=== PATIENT | male | born 1945 | race Two or more races ===

== ENCOUNTER 2017-08-01 10:14 | Inpatient (IN) | payer OTHER ==
[~2017-08-01] VITALS: Ht 165.1 cm; Wt 88.5 kg
[2017-08-01] MEDS ORDERED: LOSARTAN-HCTZ1 EAC1 PO (10:37)
[2017-08-01] MEDS ORDERED: CARVEDILOL6.25 MG PO (10:38)
[2017-08-01] MEDS ORDERED: CRESTOR10 MG PO (10:38)
[2017-08-01] MEDS ORDERED: XANAX1 MG PO (10:38)
[2017-08-01] MEDS ORDERED: FENOFIBRATE43 MG PO (10:38)
[2017-08-01] MEDS ORDERED: JANUMET XR 50-1 EAC1 PO (10:39)
[2017-08-01] MEDS ORDERED: FOLIC ACID1 MG PO (10:39)
[2017-08-01] MEDS ORDERED: HUMULIN 70100 UNIT/2 SUBCUTANEO (10:39)
[2017-08-01] MEDS ORDERED: SYNTHROID75 MCG PO (10:40)
[2017-08-01] MEDS ORDERED: ASA81 MG PO (10:40)
[2017-08-01] MEDS ORDERED: GABAPENTIN600 MG PO (10:40)
[2017-08-01] MEDS ORDERED: ALPRAZOLAM2 MG PO (10:41)
[2017-08-01] MEDS ORDERED: OMEPRAZOLE20 M1 PO (10:41)
[2017-08-11] MEDS ORDERED: AMOXICILLIN875 MG PO (17:09)
[2017-08-11] MEDS ORDERED: PERCOCET 5-3251 EACH PO (17:09)
[2017-08-11] MEDS ORDERED: XANAX1 MG PO (17:09)
[2017-08-11] MEDS ORDERED: COLACE100 MG PO (17:09)
[2017-08-11] MEDS ORDERED: NEURONTIN800 MG PO (17:09)
== END 2017-08-12 16:49 | disposition home or self-care (01) | DRG 460 ==
LOC: O/R 08-11 05:15 → SURG 08-11 10:13
PROVIDERS: Orthopaedic Surgery Orthopaedic Surgery of the Spine
PROC: 0SG00AJ Fusion of Lumbar Vertebral Joint with Interbody Fusion Device, Posterior Approach, Anterior Column, Open Approach (ICD-10-PCS; 2017-08-11)
PROC: 0SG30AJ Fusion of Lumbosacral Joint with Interbody Fusion Device, Posterior Approach, Anterior Column, Open Approach (ICD-10-PCS; 2017-08-11)
PROC: 0ST40ZZ Resection of Lumbosacral Disc, Open Approach (ICD-10-PCS; 2017-08-11)
PROC: 07DS3ZZ Extraction of Vertebral Bone Marrow, Percutaneous Approach (ICD-10-PCS; 2017-08-11)
PROC: 00NY0ZZ Release Lumbar Spinal Cord, Open Approach (ICD-10-PCS; principal; 2017-08-11 14:45)
PROC: 0ST20ZZ Resection of Lumbar Vertebral Disc, Open Approach (ICD-10-PCS; 2017-08-11 14:45)
DX: M47.27 Other spondylosis with radiculopathy, lumbosacral region (principal); M48.07 Spinal stenosis, lumbosacral region; I10 Essential (primary) hypertension; E03.8 Other specified hypothyroidism; M51.17 Intervertebral disc disorders with radiculopathy, lumbosacral region